=== PATIENT | male | born 1980 | race Hispanic/Latino ===

== ENCOUNTER 2018-03-14 02:02 | Emergency (ER) | payer SELFPAY ==
--- OUTSIDE RECORDS SUMMARY | 2018-03-14 02:04 | XMS REPORT ---
:1980 Author Organization eClinicalWorks Care Team Providers Name Role Phone Beryl Frances Provider Role Unavailable Allergies, Adverse Reactions, Alerts Substance Reaction Event Type N.K.D.A. Info Not Available Non Drug Allergy Problems Problem Type Condition Code Onset Dates Condition Status Problem Migraine without status G43.909 Active migrainosus, not intractable, unspecified migraine type Problem Hypertension, unspecified type I10 Active Problem Prediabetes R73.03 Active Problem Hematochezia K92.1 Active Problem Fatigue, unspecified type R53.83 Active Problem Gastroesophageal reflux K21.9 Active Problem JOHN (obstructive sleep apnea) G47.33 Active Problem CPAP (continuous positive airway Z99.89 Active pressure) dependence Problem Vitamin D deficiency E55.9 Active Problem Hyperkalemia E87.5 Active Assessment Hypertension, unspecified type I10 Active Assessment Fatigue, unspecified type R53.83 Active Assessment CPAP (continuous positive airway Z99.89 Active pressure) dependence Assessment Vitamin D deficiency E55.9 Active Assessment JOHN (obstructive sleep apnea) G47.33 Active Assessment Hyperkalemia E87.5 Active Medications Medication Code Code Instructions Start End Status Dosage System Date Date Lisinopril [facility] 99825057970 20 MG Orally Active 1 tablet Once a day Vitamin D [facility] 84409410159 2000 UNIT Active 1 tablet Orally Once a day Cyclobenzaprine [facility] 50078648764 10 MG Orally Active 1 tablet HCl twice daily as needed Results No Known Results Summary Purpose eClinicalWorks Submission
--- OUTSIDE RECORDS SUMMARY | 2018-03-14 02:04 | XMS REPORT ---
:1980 Author Organization eClinicalWorks Care Team Providers Name Role Phone Beryl Frances Provider Role Unavailable Allergies, Adverse Reactions, Alerts Substance Reaction Event Type N.K.D.A. Info Not Available Non Drug Allergy Problems Problem Type Condition Code Onset Dates Condition Status Problem CPAP (continuous positive airway Z99.89 Active pressure) dependence Problem JOHN (obstructive sleep apnea) G47.33 Active Problem Hypertension, unspecified type I10 Active Problem Cardiac arrhythmia, unspecified I49.9 Active cardiac arrhythmia type Assessment Vitamin D deficiency E55.9 Active Problem Gastroesophageal reflux K21.9 Active Assessment Migraine without status G43.909 Active migrainosus, not intractable, unspecified migraine type Problem Chest pain, unspecified type R07.9 Active Problem Vitamin D deficiency E55.9 Active Problem Hyperkalemia E87.5 Active Problem Hematochezia K92.1 Active Problem Fatigue, unspecified type R53.83 Active Assessment Fatigue, unspecified type R53.83 Active Assessment Prediabetes R73.03 Active Assessment CPAP (continuous positive airway Z99.89 Active pressure) dependence Assessment JOHN (obstructive sleep apnea) G47.33 Active Assessment Chest pain, unspecified type R07.9 Active Assessment Hypertension, unspecified type I10 Active Assessment Heavy metal poison. screen Z13.88 Active Problem Migraine without status G43.909 Active migrainosus, not intractable, unspecified migraine type Assessment Cardiac arrhythmia, unspecified I49.9 Active cardiac arrhythmia type Problem Prediabetes R73.03 Active Medications Medication Code Code Instructions Start End Status Dosage System Date Date Vitamin D [facility] 61880481566 2000 UNIT Active 1 tablet Orally Once a day Cyclobenzaprine [facility] 62356785778 10 MG Orally Active 1 tablet HCl twice daily as needed Lisinopril [facility] 71330190492 20 mg Orally Active 1 tablet Once a day Results No Known Results Summary Purpose eClinicalWorks Submission
--- OUTSIDE RECORDS SUMMARY | 2018-03-14 02:04 | XMS REPORT ---
:1980 Author Organization eClinicalWorks Care Team Providers Name Role Phone Beryl Frances Provider Role Unavailable Allergies No Known Allergies Problems Problem Type Condition Code Onset Dates Condition Status Problem CPAP (continuous positive airway Z99.89 Active pressure) dependence Problem JOHN (obstructive sleep apnea) G47.33 Active Problem Hypertension, unspecified type I10 Active Problem Migraine without status G43.909 Active migrainosus, not intractable, unspecified migraine type Problem Prediabetes R73.03 Active Problem Cardiac arrhythmia, unspecified I49.9 Active cardiac arrhythmia type Problem Gastroesophageal reflux K21.9 Active Problem Chest pain, unspecified type R07.9 Active Problem Vitamin D deficiency E55.9 Active Problem Hyperkalemia E87.5 Active Problem Hematochezia K92.1 Active Problem Fatigue, unspecified type R53.83 Active Medications No Known Medications Results No Known Results Summary Purpose eClinicalWorks Submission
[2018-03-14] MEDS ORDERED: NA CHLORIDE 0.9% 500 ML ONE (02:37)
[2018-03-14] MEDS ORDERED: METOPROLOL TAR 25 MG TAB ONE (02:37)
[2018-03-14 02:58] LABS: Urine Blood 1+ (NEG); Urine Glucose NEGATIVE (NEG); Urine Protein NEGATIVE (NEG); Urine Specific Gravity 1.005 (1.005-1.030)
[2018-03-14 03:04] LABS: Absolute Lymphocytes (CBC) 3.1 K/uL (0.7-4.9); Absolute Monocytes 0.7 K/uL (0.1-1.3); Absolute Neutrophil 2.3 K/uL (1.8-8.0); Basophils % 0.4 % (0-1.3); Eosinophils % 2.2 % (0-4.4); Hematocrit 45.4 % (39.6-49.0); MCH 25.4 pg (27.0-35.0); MCV 78.6 fL (80-100); MPV 8.4 fL (7.6-11.3); Monocytes % 10.8 % (3.3-12.3); RBC Red Blood Cell Count 5.78 M/uL (4.33-5.43)
[2018-03-14 03:12] LABS: Protime INR 1.07
[2018-03-14 03:14] LABS: Bicarbonate 27 mEq/L (21-31); Glucose Level 107 mg/dL (65-120); Potassium 3.7 mEq/L (3.6-5.0); Sodium Level 135 mEq/L (135-145)
[2018-03-14 03:20] LABS: ALT/SGPT 33 IU/L (10-60); AST/SGOT 23 IU/L (10-42); Albumin 3.9 g/dL (3.2-5.5); BUN Blood Urea Nitrogen 15 mg/dL (6-20); Bilirubin Direct < 0.1 mg/dL (0-0.2); Bilirubin Total 0.6 mg/dL (0.3-1.2); Creatine Phosphokinase 433 IU/L (22-269); Magnesium 2.1 mg/dL (1.8-2.5); Protein, Total 7.5 g/dL (6.0-8.3)
[2018-03-14 03:21] LABS: CKMB Creatine Kinase MB 2.6 ng/ml (0.3-4.0)
[2018-03-14 03:41] LABS: Barbiturates NEGATIVE; Benzodiazepines NEGATIVE; Cocaine NEGATIVE; METHAMPHETAM NEGATIVE; Opiates NEGATIVE; Phencyclidine NEGATIVE; THC Cannibis NEGATIVE
[2018-03-14 03:44] LABS: Alkaline Phosphatase 53 IU/L (42-121)
--- NOTE | 2018-03-14 03:46 | ER ---
Nurse's Notes [facility] Name: Shahid Parikh Age: 37 yrs Sex: Male : 1980 Arrival Date: 03/14/2018 Time: 02:03 Bed 6 Private MD: Diagnosis: Palpitations Presentation: 03/14 02:20 Presenting complaint: Patient states: that yesterday at 1900 he started having a fast fc heart rate along with shortness of breath. Has been on and off since then. Denies any nausea or vomiting. States he has chest pressure but no pain. Transition of care: patient was not received from another setting of care. Onset of symptoms was March 13, 2018 at 19:00. Initial Sepsis Screen: Does the patient meet any 2 criteria? No. Patient's initial sepsis screen is negative. Does the patient have a suspected source of infection? No. Patient's initial sepsis screen is negative. Care prior to arrival: None. 02:20 Method Of Arrival: Ambulatory 02:20 Acuity: ENOCH 3 Historical: - Allergies: 02:23 No Known Allergies; fc - Home Meds: 02:23 lisinopril 10 mg oral tab 1 tab once daily [Active]; fc - PMHx: 02:23 Hypertension; Sleep Apnea; Angina; fc - PSHx: 02:23 None; fc - Immunization history:: Last tetanus immunization: unknown. - Social history:: Smoking status: Patient/guardian denies using tobacco, Patient uses alcohol, occasionally. - Family history:: not pertinent. Screenin:24 Abuse screen: Denies threats or abuse. Nutritional screening: No deficits noted. Tuberculosis screening: No symptoms or risk factors identified. Fall Risk None identified. Assessment: 02:20 General: Appears in no apparent distress. uncomfortable, Behavior is calm, cooperative, tl2 appropriate for age. Pain: Complains of pain in chest Pain does not radiate. Quality of pain is described as pressure, Pain began 1899 Is intermittent. Neuro: Level of Consciousness is awake, alert, obeys commands, Oriented to person, place, time, situation. Cardiovascular: Chest pain is described as mild, quality is pressure, is located in anterior. Cardiovascular: Rhythm is irregular. Respiratory: Reports shortness of breath Airway is patent Respiratory effort is even, unlabored, Respiratory pattern is regular, symmetrical. GI: No signs and/or symptoms were reported involving the gastrointestinal system. : No signs and/or symptoms were reported regarding the genitourinary system. Derm: Skin is pink, warm \T\ dry. 03:18 Reassessment: Patient appears in no apparent distress at this time. Pt appears to be tl2 sleeping, RR even and unlabored. 04:32 Reassessment: PT D/C HOME AMBULATORY WITH FAMILY, DX WITH PALPITATIONS AND TO F/U WITH bp CARDIOLOGY. Vital Signs: 02:23 BP 118 / 82; Pulse 82; Resp 18; Temp 98.0(O); Pulse Ox 98% on R/A; Weight 100.7 kg (R); fc Height 5 ft. 6 in. (167.64 cm) (R); Pain 0/10; 03:15 BP 111 / 79; Pulse 66; Resp 21; Pulse Ox 97% on R/A; tl2 04:23 BP 111 / 77; Pulse 54; Resp 19; Pulse Ox 97% ; bp 02:23 Body Mass Index 35.83 (100.70 kg, 167.64 cm) Vitals: 03:18 Cardiac Rhythm Assessment Regular Sinus rhythm. tl2 ED Course: 02:03 Patient arrived in ED. ds1 02:22 Triage completed. fc 02:23 Ulices Huggins MD is Attending Physician. alejandro 02:23 Arm band placed on Patient placed in an exam room, on a stretcher. fc 02:24 Patient has correct armband on for positive identification. Placed in gown. Bed in low fc position. Call light in reach. radiation monitor on. Pulse ox on. NIBP on. 02:24 No provider procedures requiring assistance completed. fc 02:30 Inserted saline lock: 20 gauge in right antecubital area, using aseptic technique. tl2 Blood collected. placed by SAAD Santos. Patient maintains SpO2 saturation greater than 95% on room air. 02:43 X-ray completed. Portable x-ray completed in exam room. Patient tolerated procedure kw well. 02:43 XRAY Chest (1 view) In Process Unspecified. EDMS 03:46 Yanick Reed MD is Referral Physician. alejandro 04:33 IV discontinued, intact, bleeding controlled, No redness/swelling at site. Pressure bp dressing applied. Administered Medications: 02:39 Drug: NS 0.9% 500 ml Route: IV; Rate: bolus; Site: right antecubital; tl2 04:23 Follow up: IV Status: Completed infusion; IV Intake: 500ml bp 02:40 Drug: Lopressor 25 mg Route: PO; tl2 04:22 Follow up: Response: No adverse reaction bp Intake: 04:23 IV: 500ml; Total: 500ml. bp Outcome: 03:45 Discharge ordered by . alejandro 04:32 Discharged to home ambulatory, with family. bp 04:32 Condition: stable 04:32 Discharge instructions given to patient, Instructed on discharge instructions, follow up and referral plans. medication usage, Demonstrated understanding of instructions, follow-up care, medications, Prescriptions given X 1. 04:33 Patient left the ED. bp Signatures: Dispatcher [employer] EDMS Ulices Huggins MD MD cha Chretien, Felicia, RN RN Drea Nance ds1 Ny Fragoso Taylor RN RN tl2 Tom Howard RN RN bp
--- NOTE | 2018-03-14 03:46 | EDPHYS ---
Physician Documentation [facility] Name: Shahid Parikh Age: 37 yrs Sex: Male : 1980 Arrival Date: 03/14/2018 Time: 02:03 Bed 6 Private MD: ED Physician Ulices Huggins HPI: 03/14 02:34 This 37 yrs old Male presents to ER via Ambulatory with complaints of alejandro Irregular Pulse. 02:34 The patient presents with a history of irregular heart beat, heart racing. Context: The alejandro symptoms occur at rest. Onset: The symptoms/episode began/occurred just prior to arrival. Duration: The patient or guardian reports a single episode, that is still ongoing, but improving. Modifying factors: The symptoms are aggravated by nothing. The symptoms are alleviated by nothing. Associated signs and symptoms: The patient has no apparent associated signs or symptoms. Severity of symptoms: At their worst the symptoms were. The patient has not experienced similar symptoms in the past. Historical: - Allergies: 02:23 No Known Allergies; fc - Home Meds: 02:23 lisinopril 10 mg oral tab 1 tab once daily [Active]; fc - PMHx: 02:23 Hypertension; Sleep Apnea; Angina; fc - PSHx: 02:23 None; fc - Immunization history:: Last tetanus immunization: unknown. - Social history:: Smoking status: Patient/guardian denies using tobacco, Patient uses alcohol, occasionally. - Family history:: not pertinent. ROS: 02:34 Constitutional: Negative for fever, chills, and weight loss, Eyes: Negative for injury, alejandro pain, redness, and discharge, ENT: Negative for injury, pain, and discharge, Neck: Negative for injury, pain, and swelling, Respiratory: Negative for shortness of breath, cough, wheezing, and pleuritic chest pain, Abdomen/GI: Negative for abdominal pain, nausea, vomiting, diarrhea, and constipation, Back: Negative for injury and pain, : Negative for injury, bleeding, discharge, and swelling, MS/Extremity: Negative for injury and deformity, Skin: Negative for injury, rash, and discoloration, Neuro: Negative for headache, weakness, numbness, tingling, and seizure, Psych: Negative for depression, anxiety, suicide ideation, homicidal ideation, and hallucinations, Allergy/Immunology: Negative for hives, rash, and allergies, Endocrine: Negative for neck swelling, polydipsia, polyuria, polyphagia, and marked weight changes, Hematologic/Lymphatic: Negative for swollen nodes, abnormal bleeding, and unusual bruising. 02:34 Cardiovascular: Positive for palpitations. Exam: 02:34 Constitutional: This is a well developed, well nourished patient who is awake, alert, alejandro and in no acute distress. Head/Face: Normocephalic, atraumatic. Eyes: Pupils equal round and reactive to light, extra-ocular motions intact. Lids and lashes normal. Conjunctiva and sclera are non-icteric and not injected. Cornea within normal limits. Periorbital areas with no swelling, redness, or edema. ENT: Nares patent. No nasal discharge, no septal abnormalities noted. Tympanic membranes are normal and external auditory canals are clear. Oropharynx with no redness, swelling, or masses, exudates, or evidence of obstruction, uvula midline. Mucous membranes moist. Neck: Trachea midline, no thyromegaly or masses palpated, and no cervical lymphadenopathy. Supple, full range of motion without nuchal rigidity, or vertebral point tenderness. No Meningismus. Chest/axilla: Normal chest wall appearance and motion. Nontender with no deformity. No lesions are appreciated. Cardiovascular: Regular rate and rhythm with a normal S1 and S2. No gallops, murmurs, or rubs. Normal PMI, no JVD. No pulse deficits. Respiratory: Lungs have equal breath sounds bilaterally, clear to auscultation and percussion. No rales, rhonchi or wheezes noted. No increased work of breathing, no retractions or nasal flaring. Abdomen/GI: Soft, non-tender, with normal bowel sounds. No distension or tympany. No guarding or rebound. No evidence of tenderness throughout. Back: No spinal tenderness. No costovertebral tenderness. Full range of motion. Male : Normal genitalia with no discharge or lesions. Skin: Warm, dry with normal turgor. Normal color with no rashes, no lesions, and no evidence of cellulitis. MS/ Extremity: Pulses equal, no cyanosis. Neurovascular intact. Full, normal range of motion. Neuro: Awake and alert, GCS 15, oriented to person, place, time, and situation. Cranial nerves II-XII grossly intact. Motor strength 5/5 in all extremities. Sensory grossly intact. Cerebellar exam normal. Normal gait. Psych: Awake, alert, with orientation to person, place and time. Behavior, mood, and affect are within normal limits. 02:34 Musculoskeletal/extremity: DVT Exam: No signs of deep vein thrombosis. no pain, no swelling, no tenderness, negative Homans' sign noted on exam, no appreciated bluish discoloration, no erythema, no increased warmth. Vital Signs: 02:23 BP 118 / 82; Pulse 82; Resp 18; Temp 98.0(O); Pulse Ox 98% on R/A; Weight 100.7 kg (R); fc Height 5 ft. 6 in. (167.64 cm) (R); Pain 0/10; 03:15 BP 111 / 79; Pulse 66; Resp 21; Pulse Ox 97% on R/A; tl2 04:23 BP 111 / 77; Pulse 54; Resp 19; Pulse Ox 97% ; bp 02:23 Body Mass Index 35.83 (100.70 kg, 167.64 cm) fc MDM: 02:23 Patient medically screened. [facility] 02:38 Data reviewed: vital signs, nurses notes, lab test result(s), EKG, radiologic studies, [facility] CT scan, plain films. 03/14 02:26 Order name: Basic Metabolic Panel 03/14 02:26 Order name: BNP; Complete Time: 03:44 [facility] 03/14 02:26 Order name: CBC with Diff; Complete Time: 03:44 [facility] 03/14 02:26 Order name: Ckmb [facility] 03/14 02:26 Order name: CPK [facility] 03/14 02:26 Order name: LFT's [facility] 03/14 02:26 Order name: Magnesium [facility] 03/14 02:26 Order name: PT-INR; Complete Time: 03:44 [facility] 03/14 02:26 Order name: Ptt, Activated; Complete Time: 03:44 [facility] 03/14 02:26 Order name: Troponin (emerg Dept Use Only); Complete Time: 03:44 [facility] 03/14 02:26 Order name: TSH [facility] 03/14 02:26 Order name: UDS [facility] 03/14 02:27 Order name: Urine Culture [facility] 03/14 02:26 Order name: XRAY Chest (1 view) [facility] 03/14 02:26 Order name: EKG; Complete Time: 02:27 [facility] 03/14 02:26 Order name: Cardiac monitoring; Complete Time: 02:40 [facility] 03/14 02:26 Order name: EKG - Nurse/Tech; Complete Time: 02:40 [facility] 03/14 02:26 Order name: IV Saline Lock; Complete Time: 02:40 [facility] 03/14 02:26 Order name: Labs collected and sent; Complete Time: 02:40 [facility] 03/14 02:26 Order name: O2 Per Protocol; Complete Time: 02:40 [facility] 03/14 02:26 Order name: O2 Sat Monitoring; Complete Time: 02:40 [facility] 03/14 02:26 Order name: Urine Dipstick-Ancillary (obtain specimen); Complete Time: 02:40 [facility] 03/14 02:50 Order name: Urine Dipstick--Ancillary (enter results) eb 03/14 02:51 Order name: Urine Dipstick-Ancillary; Complete Time: 03:44 EDMS 03/14 02:53 Order name: D-Dimer; Complete Time: 03:44 EDMS Administered Medications: 02:39 Drug: NS 0.9% 500 ml Route: IV; Rate: bolus; Site: right antecubital; tl2 04:23 Follow up: IV Status: Completed infusion; IV Intake: 500ml bp 02:40 Drug: Lopressor 25 mg Route: PO; tl2 04:22 Follow up: Response: No adverse reaction bp Disposition: 03/14/18 03:45 Discharged to Home. Impression: Palpitations. - Condition is Stable. - Discharge Instructions: Palpitations, Aspirin and Your Heart, Palpitations, [id number]. - Prescriptions for Toprol XL 25 mg Oral Tablet - take 1 tablet by ORAL route once daily; 20 tablet. - Medication Reconciliation Form, Thank You Letter, Antibiotic Education, Prescription Opioid Use form. - Follow up: Private Physician; When: 2 - 3 days; Reason: Recheck today's complaints, Continuance of care, Re-evaluation by your physician. Follow up: Yanick Reed MD; When: 2 - 3 days; Reason: Recheck today's complaints, Continuance of care, Re-evaluation by your physician. - Problem is new. - Symptoms have improved. Signatures: Dispatcher [employer] EDUlices Phan MD MD cha Chretien, Felicia, RN RN Angela Nunes RN RN tl2 Tom Howard RN RN bp Corrections: (The following items were deleted from the chart) 02:52 02:40 D-DIMER+COAG.LAB.BRZ ordered. EDAZ EDMS 03:46 03:45 03/14/2018 03:45 Discharged to Home. Impression: Palpitations. Condition is alejandro Stable. Discharge Instructions: Palpitations, Aspirin and Your Heart, Palpitations, [id number]. Prescriptions for Toprol XL 25 mg Oral Tablet - take 1 tablet by ORAL route once daily; 20 tablet. and Forms are Medication Reconciliation Form, Thank You Letter, Antibiotic Education, Prescription Opioid Use. Follow up: Private Physician; When: 2 - 3 days; Reason: Recheck today's complaints, Continuance of care, Re-evaluation by your physician. Problem is new. Symptoms have improved. alejandro 04:33 03:46 03/14/2018 03:45 Discharged to Home. Impression: Palpitations. Condition is bp Stable. Discharge Instructions: Palpitations, Aspirin and Your Heart, Palpitations, [id number]. Prescriptions for Toprol XL 25 mg Oral Tablet - take 1 tablet by ORAL route once daily; 20 tablet. and Forms are Medication Reconciliation Form, Thank You Letter, Antibiotic Education, Prescription Opioid Use. Follow up: Private Physician; When: 2 - 3 days; Reason: Recheck today's complaints, Continuance of care, Re-evaluation by your physician. Follow up: Yanick Reed; When: 2 - 3 days; Reason: Recheck today's complaints, Continuance of care, Re-evaluation by your physician. Problem is new. Symptoms have improved. alejandro
[2018-03-14 03:51] LABS: Thyroid Stimulating Hormone 2.62 uIU/mL (0.34-5.60)
--- NOTE | 2018-03-14 08:28 | RAD REPORT ---
EXAM DESCRIPTION: Nydia Single View03/14/2018 2:45 am CLINICAL HISTORY: Cough COMPARISON: November 2016 FINDINGS: The lungs appear clear of acute infiltrate. The heart is normal size IMPRESSION: No acute abnormalities displayed
--- NOTE | 2018-03-14 15:41 | EKG ---
Test Date: 2018-03-14 Test Time: 02:26:10 Transportation Superintendent: YAS MEASUREMENT RESULTS: Intervals: Rate: 67 OR: 148 QRSD: 86 QT: 366 QTc: 386 [place]: P: 12 OR: 148 QRS: -5 T: 24 INTERPRETIVE STATEMENTS: Normal sinus rhythm with sinus arrhythmia Minimal voltage criteria for LVH, may be normal variant Early repolarization Borderline ECG Compared to ECG 12/19/2016 19:22:51 Left ventricular hypertrophy now present Early repolarization now present Sinus bradycardia no longer present Electronically Signed On 03-14-18 15:40:18 CDT by Quinton Alan
== END 2018-03-14 04:33 | disposition home or self-care (01) ==
LOC: ER 02:02
DX: R00.2 Palpitations (principal); I10 Essential (primary) hypertension
CPT/HCPCS: 36415; 71045; 80048; 80076; 80307; 81003; 82550; 82553; 83735; 83880; 84443; 84484; 85025; 85379; 85610; 85730; 87086; 87088; 93005; 96360; 96361; 99285

== ENCOUNTER 2018-09-21 16:22 | Emergency (ER) | payer SELFPAY ==
--- OUTSIDE RECORDS SUMMARY | 2018-09-21 16:24 | XMS REPORT ---
[...] Status Dosage System Date Date Vitamin D [facility] 92634082452 2000 UNIT Active 1 tablet Orally Once a day Cyclobenzaprine [facility] 38454336394 10 MG Orally Active 1 tablet HCl twice daily as needed Lisinopril [facility] 83051209915 20 mg Orally Active 1 tablet Once a day Results No Known Results Summary Purpose eClinicalWorks Submission
--- OUTSIDE RECORDS SUMMARY | 2018-09-21 16:24 | XMS REPORT ---
[...] End Status Dosage System Date Date Lisinopril [facility] 33614968794 20 MG Orally Active 1 tablet Once a day Vitamin D [facility] 65460078223 2000 UNIT Active 1 tablet Orally Once a day Cyclobenzaprine [facility] 21998918023 10 MG Orally Active 1 tablet HCl twice daily as needed Results No Known Results Summary Purpose eClinicalWorks Submission
--- OUTSIDE RECORDS SUMMARY | 2018-09-21 16:24 | XMS REPORT ---
[...] Problem Fatigue, unspecified type R53.83 Active Assessment CPAP (continuous positive airway Z99.89 Active pressure) dependence Assessment JOHN (obstructive sleep apnea) G47.33 Active Assessment Hypertension, unspecified type I10 Active Assessment Prediabetes R73.03 Active Problem Migraine without status G43.909 Active migrainosus, not intractable, unspecified migraine type Assessment Chest pain, unspecified type R07.9 Active Problem Prediabetes R73.03 Active Medications Medication Code Code Instructions Start End Status Dosage System Date Date Vitamin D [facility] 32081419907 2000 UNIT Active 1 tablet Orally Once a day Lisinopril [facility] 19527766118 20 mg Orally Active 1 tablet Once a day Cyclobenzaprine [facility] 22888587250 10 MG Orally Active 1 tablet HCl twice daily as needed Results No Known Results Summary Purpose eClinicalWorks Submission
--- NOTE | 2018-09-21 17:09 | ER ---
Nurse's Notes [facility] Name: Shahid Parikh Age: 38 yrs Sex: Male : 1980 Arrival Date: 09/21/2018 Time: 16:25 Bed 15 Private MD: Beryl Frances Diagnosis: Essential (primary) hypertension;Patient's unintentional underdosing of medication regimen Presentation: 09/21 16:29 Presenting complaint: Patient states: He checked his blood pressure at [facility] and it was aj1 155/99. Patient states that he currently takes lisinopril for his blood pressure. Patient states that he hasn't taken his blood pressure medication in the past week. Patient also reports chest pain since yesterday. Transition of care: patient was not received from another setting of care. Onset of symptoms was September 21, 2018. Risk Assessment: Do you want to hurt yourself or someone else? Patient reports no desire to harm self or others. Initial Sepsis Screen: Does the patient meet any 2 criteria? No. Patient's initial sepsis screen is negative. Does the patient have a suspected source of infection? No. Patient's initial sepsis screen is negative. Care prior to arrival: None. 16:29 Method Of Arrival: Ambulatory aj1 16:29 Acuity: ENOCH 3 aj1 Triage Assessment: 16:32 General: Appears in no apparent distress. comfortable, Behavior is calm, cooperative, aj1 appropriate for age. Pain: Complains of pain in chest Pain currently is 4 out of 10 on a pain scale. Neuro: Level of Consciousness is awake, alert, obeys commands. Cardiovascular: Patient's skin is warm and dry. Respiratory: Airway is patent Respiratory effort is even, unlabored, Respiratory pattern is regular, symmetrical. Historical: - Allergies: 16:32 No Known Allergies; aj1 - Home Meds: 16:32 lisinopril 10 mg Oral tab 1 tab once daily [Active]; aj1 - PMHx: 16:32 Angina; Hypertension; Sleep Apnea; aj1 - Immunization history:: Flu vaccine is not up to date. - Social history:: Smoking status: Patient/guardian denies using tobacco. - Ebola Screening: : Patient denies travel to an Ebola-affected area in the 21 days before illness onset. Screenin:36 Abuse screen: Denies threats or abuse. Denies injuries from another. Nutritional hj screening: No deficits noted. Tuberculosis screening: No symptoms or risk factors identified. Fall Risk None identified. Assessment: 16:37 General: Appears in no apparent distress. uncomfortable, Behavior is calm, cooperative, hj appropriate for age. Pain: Complains of pain in chest Pain does not radiate. Neuro: Level of Consciousness is awake, alert, obeys commands, Oriented to person, place, time. Cardiovascular: Capillary refill < 3 seconds Patient's skin is warm and dry. Respiratory: Airway is patent Respiratory effort is even, unlabored, Respiratory pattern is regular, symmetrical. GI: No signs and/or symptoms were reported involving the gastrointestinal system. : No signs and/or symptoms were reported regarding the genitourinary system. EENT: No signs and/or symptoms were reported regarding the EENT system. Derm: No signs and/or symptoms reported regarding the dermatologic system. Musculoskeletal: No signs and/or symptoms reported regarding the musculoskeletal system. Vital Signs: 16:32 BP 146 / 96; Pulse 99; Resp 18; Temp 97.6; Pulse Ox 100% on R/A; Weight 99.79 kg (R); aj1 Height 5 ft. 6 in. (167.64 cm) (R); Pain 4/10; 16:52 BP 138 / 98; Pulse 85; Resp 18; Pulse Ox 100% on R/A; hj 17:18 BP 135 / 95; Pulse 82; Resp 18; Pulse Ox 100% on R/A; hj 16:32 Body Mass Index 35.51 (99.79 kg, 167.64 cm) aj1 ED Course: 16:25 Patient arrived in ED. mr 16:26 Beryl Frances MD is Private Physician. mr 16:29 Arm band placed on. aj1 16:32 Triage completed. aj1 16:36 Corey Zamora, SAAD is Primary Nurse. hj 16:36 Patient has correct armband on for positive identification. Placed in gown. Bed in low hj position. Call light in reach. Side rails up X 1. Adult w/ patient. 16:41 [facility]C [facility] snw 16:41 Ulices Huggins MD is Attending Physician. snw 17:08 Beryl Frances MD is Referral Physician. snw 17:20 No provider procedures requiring assistance completed. Patient did not have IV access hj during this emergency room visit. Administered Medications: No medications were administered Outcome: 17:09 Discharge ordered by . arnold 17:20 Discharged to home ambulatory, with family. prashant 17:20 Condition: stable 17:20 Discharge instructions given to patient, family, Instructed on discharge instructions, follow up and referral plans. Demonstrated understanding of instructions, follow-up care. 17:27 Patient left the ED. hj Signatures: Ange Devine RN RN aj1 Neela Puente, RUPALIC ENVIRONMENTAL ENGINEER-Deirdre Carey PedersonCorey john RN RN hj Corrections: (The following items were deleted from the chart) 16:33 16:29 Presenting complaint: Patient states: He checked his blood pressure at [facility] and it aj1 was 155/99. Patient states that he currently takes lisinopril for his blood pressure. Patient states that he hasn't taken his blood pressure medication in the past week. aj1 16:34 16:29 Acuity: ENOCH 4 aj1 aj1 16:34 16:32 BP 146 / 96; Pulse 99bpm; Resp 18bpm; Pulse Ox 100% RA; Temp 97.6F; 99.79 kg aj1 Reported; Height 5 ft. 6 in. Reported; BMI: 35.5; Pain 6/10; aj1
--- NOTE | 2018-09-21 17:09 | EDPHYS ---
Physician Documentation [facility] Name: Shahid Parikh Age: 38 yrs Sex: Male : 1980 Arrival Date: 09/21/2018 Time: 16:25 Bed 15 Private MD: Beryl Frances ED Physician Ulices Huggins HPI: 09/21 17:11 This 38 yrs old Male presents to ER via Ambulatory with complaints of High snw Blood Pressure. 17:11 The patient has elevated blood pressure and discovered this at [facility], during work snw physical. Onset: The symptoms/episode began/occurred gradually. Modifying factors: The symptoms are aggravated by stopping BP medications. Associated signs and symptoms: Pertinent positives: headache, "movement inside my body". Severity of symptoms: At its worst the blood pressure was 158 mm Hg. The patient has experienced similar episodes in the past. The patient has not recently seen a physician. pt saw article on Facebook about antihypertensives being linked to cancer and stopped taking his Lisinopril 20mg a week ago.. Historical: - Allergies: 16:32 No Known Allergies; aj1 - Home Meds: 16:32 lisinopril 10 mg Oral tab 1 tab once daily [Active]; aj1 - PMHx: 16:32 Angina; Hypertension; Sleep Apnea; aj1 - Immunization history:: Flu vaccine is not up to date. - Social history:: Smoking status: Patient/guardian denies using tobacco. - Ebola Screening: : Patient denies travel to an Ebola-affected area in the 21 days before illness onset. ROS: 17:10 Constitutional: Negative for fever, chills, and weight loss, Eyes: Negative for injury, snw pain, redness, and discharge, ENT: Negative for injury, pain, and discharge, Neck: Negative for injury, pain, and swelling, Cardiovascular: Negative for chest pain, palpitations, and edema, Respiratory: Negative for shortness of breath, cough, wheezing, and pleuritic chest pain, Abdomen/GI: Negative for abdominal pain, nausea, vomiting, diarrhea, and constipation, Back: Negative for injury and pain, : Negative for injury, bleeding, discharge, and swelling, MS/Extremity: Negative for injury and deformity, Skin: Negative for injury, rash, and discoloration. 17:10 Neuro: Positive for headache. Exam: 17:10 Constitutional: This is a well developed, well nourished patient who is awake, alert, snw and in no acute distress. Head/Face: Normocephalic, atraumatic. Eyes: Pupils equal round and reactive to light, extra-ocular motions intact. Lids and lashes normal. Conjunctiva and sclera are non-icteric and not injected. Cornea within normal limits. Periorbital areas with no swelling, redness, or edema. ENT: Nares patent. No nasal discharge, no septal abnormalities noted. Tympanic membranes are normal and external auditory canals are clear. Oropharynx with no redness, swelling, or masses, exudates, or evidence of obstruction, uvula midline. Mucous membranes moist. Neck: Trachea midline, no thyromegaly or masses palpated, and no cervical lymphadenopathy. Supple, full range of motion without nuchal rigidity, or vertebral point tenderness. No Meningismus. Chest/axilla: Normal chest wall appearance and motion. Nontender with no deformity. No lesions are appreciated. Cardiovascular: Regular rate and rhythm with a normal S1 and S2. No gallops, murmurs, or rubs. Normal PMI, no JVD. No pulse deficits. Respiratory: Lungs have equal breath sounds bilaterally, clear to auscultation and percussion. No rales, rhonchi or wheezes noted. No increased work of breathing, no retractions or nasal flaring. Abdomen/GI: Soft, non-tender, with normal bowel sounds. No distension or tympany. No guarding or rebound. No evidence of tenderness throughout. Back: No spinal tenderness. No costovertebral tenderness. Full range of motion. Skin: Warm, dry with normal turgor. Normal color with no rashes, no lesions, and no evidence of cellulitis. MS/ Extremity: Pulses equal, no cyanosis. Neurovascular intact. Full, normal range of motion. Neuro: Awake and alert, GCS 15, oriented to person, place, time, and situation. Cranial nerves II-XII grossly intact. Motor strength 5/5 in all extremities. Sensory grossly intact. Cerebellar exam normal. Normal gait. Psych: Awake, alert, with orientation to person, place and time. Behavior, mood, and affect are within normal limits. Vital Signs: 16:32 BP 146 / 96; Pulse 99; Resp 18; Temp 97.6; Pulse Ox 100% on R/A; Weight 99.79 kg (R); aj1 Height 5 ft. 6 in. (167.64 cm) (R); Pain 4/10; 16:52 BP 138 / 98; Pulse 85; Resp 18; Pulse Ox 100% on R/A; hj 17:18 BP 135 / 95; Pulse 82; Resp 18; Pulse Ox 100% on R/A; hj 16:32 Body Mass Index 35.51 (99.79 kg, 167.64 cm) aj1 MDM: 16:41 Patient medically screened. snw 17:11 Data reviewed: vital signs, nurses notes. Data interpreted: Pulse oximetry: on room air snw is 100 %. Interpretation: normal. Counseling: I had a detailed discussion with the patient and/or guardian regarding: the historical points, exam findings, and any diagnostic results supporting the discharge/admit diagnosis, the presence of at least one elevated blood pressure reading (>120/80) during this emergency department visit, the need for outpatient follow up, to return to the emergency department if symptoms worsen or persist or if there are any questions or concerns that arise at home. Special discussion: I have referred the patient to see his PCP for further evaluation of high blood pressure. Based on the history and exam findings, there is no indication for further emergent testing or inpatient evaluation. I discussed with the patient/guardian the need to see the primary care provider for further evaluation of the symptoms. 09/21 16:41 Order name: EKG; Complete Time: 16:42 snw 09/21 16:41 Order name: EKG - Nurse/Tech; Complete Time: 16:42 snw Administered Medications: No medications were administered Disposition: 09/22 08:26 Co-signature as Attending Physician, Uliecs Huggins MD I agree with the assessment and alejandro plan of care. Disposition: 09/21/18 17:09 Discharged to Home. Impression: Essential (primary) hypertension, Patient's unintentional underdosing of medication regimen. - Condition is Stable. - Discharge Instructions: Hypertension, Heart Disease Prevention, DASH Eating Plan, Managing Your Hypertension. - Medication Reconciliation Form, Thank You Letter, Antibiotic Education, Prescription Opioid Use form. - Follow up: Beryl Frances MD; When: 2 - 3 days; Reason: Recheck today's complaints, Continuance of care, Re-evaluation by your physician. Follow up: Emergency Department; When: As needed; Reason: Worsening of condition. Signatures: Ange Devine, RN RN aj1 Ulices Huggins MD MD cha Therrien, Shelly, IMMIGRATION INVESTIGATOR-C IMMIGRATION INVESTIGATOR-Csnw Corey Zamora, RN RN hj Corrections: (The following items were deleted from the chart) 09/21 17:27 17:09 09/21/2018 17:09 Discharged to Home. Impression: Essential (primary) hj hypertension; Patient's unintentional underdosing of medication regimen. Condition is Stable. Discharge Instructions: Hypertension. Forms are Medication Reconciliation Form, Thank You Letter, Antibiotic Education, Prescription Opioid Use. Follow up: Beryl Frances; When: 2 - 3 days; Reason: Recheck today's complaints, Continuance of care, Re-evaluation by your physician. Follow up: Emergency Department; When: As needed; Reason: Worsening of condition. snw
--- NOTE | 2018-09-22 07:35 | EKG ---
Test Date: 2018-09-21 Test Time: 16:45:33 Food And Beverage Operations Manager: NEIL MEASUREMENT RESULTS: Intervals: Rate: 81 PA: 132 QRSD: 82 QT: 348 QTc: 404 [place]: P: 56 PA: 132 QRS: 25 T: 47 INTERPRETIVE STATEMENTS: Normal sinus rhythm with sinus arrhythmia Normal ECG Compared to ECG 03/14/2018 02:26:10 Left ventricular hypertrophy no longer present Early repolarization no longer present Electronically Signed On 09-22-18 07:34:01 IT SECURITY SPECIALIST by Quinton Alan
== END 2018-09-21 17:27 | disposition home or self-care (01) ==
LOC: ER 16:22
DX: I10 Essential (primary) hypertension (principal); Z91.138 Patient's unintentional underdosing of medication regimen for other reason; Z79.899 Other long term (current) drug therapy
CPT/HCPCS: 93005; 99281

== ENCOUNTER 2019-03-13 00:10 | Emergency (ER) | payer SELFPAY ==
--- OUTSIDE RECORDS SUMMARY | 2019-03-13 00:12 | XMS REPORT ---
[...] Dosage System Date Date Vitamin D [facility] [id number] 2000 UNIT Active 1 tablet Orally Once a day Cyclobenzaprine [facility] 79028773549 10 MG Orally Active 1 tablet HCl twice daily as needed Lisinopril [facility] 34036096594 20 mg Orally Active 1 tablet Once a day Results No Known Results Summary Purpose eClinicalWorks Submission
--- OUTSIDE RECORDS SUMMARY | 2019-03-13 00:13 | XMS REPORT ---
:1980 Author Organization eClinicalWorks Care Team Providers Name Role Phone Juan Daniel Beryl Provider Role Unavailable Allergies, Adverse Reactions, Alerts Substance Reaction Event Type N.K.D.A. Info Not Available Non Drug Allergy Problems Problem Type Condition Code Onset Dates Condition Status Assessment Vitamin D deficiency E55.9 Active Problem Vitamin D deficiency E55.9 Active Assessment CPAP (continuous positive airway Z99.89 Active pressure) dependence Problem Fatigue, unspecified type R53.83 Active Assessment JOHN (obstructive sleep apnea) G47.33 Active Problem CPAP (continuous positive airway Z99.89 Active pressure) dependence Problem Hematochezia K92.1 Active Problem Hypertension, unspecified type I10 Active Problem Chest wall pain R07.89 Active Problem Erectile dysfunction, unspecified N52.9 Active erectile dysfunction type Assessment Screening for STD (sexually Z11.3 Active transmitted disease) Assessment Erectile dysfunction, unspecified N52.9 Active erectile dysfunction type Problem Essential hypertension I10 Active Assessment Prediabetes R73.03 Active Problem Chest pain, unspecified type R07.9 Active Problem Gastroesophageal reflux K21.9 Active Problem Testicular pain N50.819 Active Problem Cardiac arrhythmia, unspecified I49.9 Active cardiac arrhythmia type Assessment Essential hypertension I10 Active Assessment Testicular pain N50.819 Active Assessment Chest wall pain R07.89 Active Problem JONH (obstructive sleep apnea) G47.33 Active Problem Hyperkalemia E87.5 Active Problem Prediabetes R73.03 Active Problem Migraine without status G43.909 Active migrainosus, not intractable, unspecified migraine type Medications Medication Code Code Instructions Start End Status Dosage System Date Date Lisinopril ND 19019545563 20 mg Orally Active 1 tablet Once a day Vitamin D ND 95618713884 2000 UNIT Active 1 tablet Orally Once a day Cyclobenzaprine ND 69045226702 10 MG Orally Active 1 tablet HCl twice daily as needed Results No Known Results Summary Purpose eClinicalWorks Submission
--- OUTSIDE RECORDS SUMMARY | 2019-03-13 00:13 | XMS REPORT ---
[...] dysfunction type Problem Essential hypertension I10 Active Problem Chest pain, unspecified type R07.9 Active Problem Gastroesophageal reflux K21.9 Active Problem Testicular pain N50.819 Active Problem Cardiac arrhythmia, unspecified I49.9 Active cardiac arrhythmia type Problem JOHN (obstructive sleep apnea) G47.33 Active Problem Hyperkalemia E87.5 Active Problem Prediabetes R73.03 Active Problem Vitamin D deficiency E55.9 Active Problem Migraine without status G43.909 Active migrainosus, not intractable, unspecified migraine type Problem Fatigue, unspecified type R53.83 Active Medications Medication Code Code Instructions Start End Status Dosage System Date Date Ergocalciferol [facility] [id number] UNIT February 26April Active 1 capsule Orally once a 2019 , week for 2018 Results No Known Results Summary Purpose eClinicalWorks Submission
--- OUTSIDE RECORDS SUMMARY | 2019-03-13 00:13 | XMS REPORT ---
:1980 Author Organization eClinicalWorks Care Team Providers Name Role Phone Juan Daniel Beryl Provider Role Unavailable Allergies No Known Allergies Problems Problem Type Condition Code Onset Dates Condition Status Problem CPAP (continuous positive airway Z99.89 Active pressure) dependence Problem JOHN (obstructive sleep apnea) G47.33 Active Problem Hypertension, unspecified type I10 Active Assessment Hypertension, unspecified type I10 Active Problem Migraine [...] Status Dosage System Date Date Vitamin D [facility] 25607923902 2000 UNIT Active 1 tablet Orally Once a day Cyclobenzaprine [facility] 04206098118 10 MG Orally Active 1 tablet HCl twice daily as needed Lisinopril [facility] 90739607101 20 mg Orally Active 1 tablet Once a day Results No Known Results Summary Purpose eClinicalWorks Submission
--- OUTSIDE RECORDS SUMMARY | 2019-03-13 00:13 | XMS REPORT ---
[...] Status Dosage System Date Date Vitamin D [facility] [id number] 2000 UNIT Active 1 tablet Orally Once a day Lisinopril [facility] 52974940112 20 mg Orally Active 1 tablet Once a day Cyclobenzaprine [facility] 26385380785 10 MG Orally Active 1 tablet HCl twice daily as needed Results No Known Results Summary Purpose eClinicalWorks Submission
--- NOTE | 2019-03-13 00:35 | ER ---
Nurse's Notes [facility] Name: Shahid Parikh Age: 38 yrs Sex: Male : 1980 Arrival Date: 03/13/2019 Time: 00:11 Bed 24 Private MD: Diagnosis: Essential (primary) hypertension Presentation: 03/13 00:22 Presenting complaint: Patient states: I was at [facility] at 2030 this evening and my BP was ca1 140/80 something. Pt also c/o Shortness of Breath for 3 days but not now especially during after lunch. Transition of care: patient was not received from another setting of care. Onset of symptoms was March 13, 2019. Risk Assessment: Do you want to hurt yourself or someone else? Patient reports no desire to harm self or others. Initial Sepsis Screen: Does the patient meet any 2 criteria? No. Patient's initial sepsis screen is negative. Does the patient have a suspected source of infection? No. Patient's initial sepsis screen is negative. 00:22 Method Of Arrival: Ambulatory ca1 00:22 Acuity: ENOCH 3 ca1 00:22 Care prior to arrival: None. ca1 Triage Assessment: 00:33 General: Appears in no apparent distress. comfortable, Behavior is calm, cooperative, ca1 appropriate for age. Pain: Denies pain. Historical: - Allergies: 00:33 No Known Allergies; ca1 - Home Meds: 00:33 lisinopril 20 mg oral tab 1 tab once daily [Active]; ca1 - PMHx: 00:33 Angina; Hypertension; Sleep Apnea; ca1 - Immunization history:: Adult Immunizations not up to date, Adult Immunizations. - Social history:: Smoking status: Patient/guardian denies using tobacco. - Ebola Screening: : No symptoms or risks identified at this time. Screenin:35 Abuse screen: Denies threats or abuse. Denies injuries from another. Nutritional ca1 screening: No deficits noted. Tuberculosis screening: No symptoms or risk factors identified. Fall Risk None identified. Assessment: 00:35 General: Appears in no apparent distress. comfortable, Behavior is calm, cooperative, ca1 appropriate for age. Pain: Denies pain. Neuro: Level of Consciousness is awake, alert, obeys commands, Oriented to person, place, time, situation. Cardiovascular: Heart tones S1 S2 present Capillary refill < 3 seconds Patient's skin is warm and dry. Respiratory: Airway is patent Respiratory effort is even, unlabored, Respiratory pattern is regular, symmetrical, Breath sounds are clear bilaterally. GI: No deficits noted. No signs and/or symptoms were reported involving the gastrointestinal system. : No deficits noted. No signs and/or symptoms were reported regarding the genitourinary system. EENT: No deficits noted. No signs and/or symptoms were reported regarding the EENT system. Derm: Skin is intact, is healthy with good turgor, Skin is pink, warm \T\ dry. Musculoskeletal: Circulation, motion, and sensation intact. Capillary refill < 3 seconds. 00:35 Reassessment: Terrance Cook NP at bedside. ca1 Vital Signs: 00:33 BP 128 / 99; Pulse 67; Resp 17 S; Temp 97.9; Pulse Ox 100% on R/A; ca1 ED Course: 00:11 Patient arrived in ED. ds1 00:17 Stephanie Gupta RN is Primary Nurse. ca1 00:17 Terrance Cook NP is PHCP. pm1 00:17 Ulices Huggins MD is Attending Physician. pm1 00:31 Triage completed. ca1 00:33 Arm band placed on right wrist. ca1 00:35 Patient has correct armband on for positive identification. Bed in low position. Call ca1 light in reach. Side rails up X 1. Pulse ox on. NIBP on. 00:35 No provider procedures requiring assistance completed. Patient did not have IV access ca1 during this emergency room visit. Administered Medications: No medications were administered Outcome: 00:35 Discharge ordered by . pm1 00:38 Discharged to home ambulatory. ca1 00:38 Condition: stable 00:38 Discharge instructions given to patient, Instructed on discharge instructions, follow up and referral plans. Demonstrated understanding of instructions, follow-up care. 00:41 Patient left the ED. ca1 Signatures: Alcantara Drea ds1 Terrance Cook NP TRACTOR DISTRIBUTOR pm1 Stephanie Gupta RN RN ca1
--- NOTE | 2019-03-13 00:36 | EDPHYS ---
Physician Documentation [facility] – [place], [place] Name: Shahid Parikh Age: 38 yrs Sex: Male : 1980 Arrival Date: 03/13/2019 Time: 00:11 Bed 24 Private MD: ED Physician Ulices Huggins HPI: 03/13 00:30 This 38 yrs old Male presents to ER via Ambulatory with complaints of High pm1 Blood Pressure. 00:30 The patient has elevated blood pressure and discovered this at a drugstore. Onset: The pm1 symptoms/episode began/occurred last night. Associated signs and symptoms: The patient has no apparent associated signs or symptoms, Pertinent positives: dizziness that has resolved, Pertinent negatives: chest pain, headache, shortness of breath. Severity of symptoms: in the emergency department the blood pressure is improved. The patient has not recently seen a physician, the patient's primary care provider is Dr. Frances. Historical: - Allergies: 00:33 No Known Allergies; ca1 - Home Meds: 00:33 lisinopril 20 mg oral tab 1 tab once daily [Active]; ca1 - PMHx: 00:33 Angina; Hypertension; Sleep Apnea; ca1 - Immunization history:: Adult Immunizations not up to date, Adult Immunizations. - Social history:: Smoking status: Patient/guardian denies using tobacco. - Ebola Screening: : No symptoms or risks identified at this time. ROS: 00:42 Constitutional: Negative for fever, chills, and weight loss, Eyes: Negative for injury, pm1 pain, redness, and discharge, ENT: Negative for injury, pain, and discharge, Neck: Negative for injury, pain, and swelling, Cardiovascular: Negative for chest pain, palpitations, and edema, Respiratory: Negative for shortness of breath, cough, wheezing, and pleuritic chest pain, Abdomen/GI: Negative for abdominal pain, nausea, vomiting, diarrhea, and constipation, Back: Negative for injury and pain, : Negative for injury, bleeding, discharge, and swelling, MS/Extremity: Negative for injury and deformity, Skin: Negative for injury, rash, and discoloration, Neuro: Negative for headache, weakness, numbness, tingling, and seizure. Exam: 00:42 Constitutional: This is a well developed, well nourished patient who is awake, alert, pm1 and in no acute distress. Head/Face: Normocephalic, atraumatic. Neck: Trachea midline, no thyromegaly or masses palpated, and no cervical lymphadenopathy. Supple, full range of motion without nuchal rigidity, or vertebral point tenderness. No Meningismus. Chest/axilla: Normal chest wall appearance and motion. Nontender with no deformity. No lesions are appreciated. Cardiovascular: Regular rate and rhythm with a normal S1 and S2. No gallops, murmurs, or rubs. Normal PMI, no JVD. No pulse deficits. Respiratory: Lungs have equal breath sounds bilaterally, clear to auscultation and percussion. No rales, rhonchi or wheezes noted. No increased work of breathing, no retractions or nasal flaring. Abdomen/GI: Soft, non-tender, with normal bowel sounds. No distension or tympany. No guarding or rebound. No evidence of tenderness throughout. Back: No spinal tenderness. No costovertebral tenderness. Full range of motion. Skin: Warm, dry with normal turgor. Normal color with no rashes, no lesions, and no evidence of cellulitis. MS/ Extremity: Pulses equal, no cyanosis. Neurovascular intact. Full, normal range of motion. 00:42 Neuro: Orientation: is normal, Motor: is normal, moves all fours, Sensation: is normal, no obvious gross deficits, Gait: is steady, at a normal pace, without difficulty. Vital Signs: 00:33 BP 128 / 99; Pulse 67; Resp 17 S; Temp 97.9; Pulse Ox 100% on R/A; ca1 MDM: 00:18 Patient medically screened. pm1 00:30 Refusal of service: The patient/guardian displays adequate decision making capability pm1 and despite a detailed discussion of alternatives, benefits, risks, and consequences refuses: all lab tests, all X-rays, ECG. The patient just wanted to know that his blood pressure was fine and did not require intervention. Informed that patient that lifestyle changes and evaluation by his PCP is what is required. His blood pressure was higher at [facility] and it has improved. 00:34 Data reviewed: vital signs. Counseling: I had a detailed discussion with the patient pm1 and/or guardian regarding: the historical points, exam findings, and any diagnostic results supporting the discharge/admit diagnosis, the need for outpatient follow up, a family practitioner, further blood pressure management. Diet and weight loss for blood pressure improvement without increases in medications, to return to the emergency department if symptoms worsen or persist or if there are any questions or concerns that arise at home. Administered Medications: No medications were administered Disposition: 07:21 Co-signature as Attending Physician, Ulices Huggins MD I agree with the assessment and alejandro plan of care. Disposition: 03/13/19 00:35 Discharged to Home. Impression: Essential (primary) hypertension. - Condition is Stable. - Discharge Instructions: Hypertension, How to Take Your Blood Pressure, [id number], DASH Eating Plan, Managing Your Hypertension. - Medication Reconciliation Form, Thank You Letter, Antibiotic Education, Prescription Opioid Use form. - Follow up: Emergency Department; When: As needed; Reason: Worsening of condition. Follow up: Private Physician; When: 2 - 3 days; Reason: Recheck today's complaints, Continuance of care, Re-evaluation by your physician. - Problem is new. - Symptoms have improved. Signatures: Ulices Huggins MD MD cha Marinas, Patrick, STRIP PRESSER STRIP PRESSER pm1 Stephanie Gupta RN RN ca1 Corrections: (The following items were deleted from the chart) 00:41 00:35 03/13/2019 00:35 Discharged to Home. Impression: Essential (primary) ca1 hypertension. Condition is Stable. Forms are Medication Reconciliation Form, Thank You Letter, Antibiotic Education, Prescription Opioid Use. Follow up: Emergency Department; When: As needed; Reason: Worsening of condition. Follow up: Private Physician; When: 2 - 3 days; Reason: Recheck today's complaints, Continuance of care, Re-evaluation by your physician. Problem is new. Symptoms have improved. pm1
== END 2019-03-13 00:41 | disposition home or self-care (01) ==
LOC: ER 00:10
DX: I10 Essential (primary) hypertension (principal)
CPT/HCPCS: 99283